=== PATIENT | female | born 1970 | race Caucasian/White ===

== ENCOUNTER 2017-02-05 06:50 | Emergency (ER) | payer OTHER ==
[2017-02-05 07:37] VITALS: O2SAT 99
[2017-02-05 08:03] LABS: BASOPHILS % (AUTO) 1 % (0-3); EOSINOPHILS % (AUTO) 4 % (0-9); HEMATOCRIT 38 % (35-47); MEAN CORPUSCULAR HGB CONC 36.3 gm/dl (32.0-36.0); MEAN CORPUSCULAR VOLUME 96 fL (81-99); MONOCYTES % (AUTO) 6.6 % (0-12); NEUTROPHILS % (AUTO) 67.5 % (37-80)
[2017-02-05 08:05] VITALS: BP 113/76; PULSE 72; RESP 13; TEMP 98.3
[2017-02-05 08:18] LABS: NORMAL RBCS NORMAL RBCS
== END 2017-02-05 08:32 | disposition home or self-care (01) | DRG 204 ==
LOC: ED 06:50
DX: R07.81 Pleurodynia (principal)
CPT/HCPCS: 36415; 71020; 85025; 93005; 99284

== ENCOUNTER 2017-11-20 23:28 | Emergency (ER) | payer BC, OTHER ==
[2017-11-20 23:29] VITALS: O2SAT 99
[2017-11-21 00:39] VITALS: BP 114/77; PULSE 100; RESP 16; TEMP 99
[2017-11-21] MEDS ORDERED: NAPROXEN 500 MG TAB PO ONE (00:47)
[2017-11-21] MEDS ORDERED: NAPROXEN 500 MG TAB ONE (00:53)
== END 2017-11-21 01:00 | disposition home or self-care (01) ==
LOC: ED 23:28
DX: N83.292 Other ovarian cyst, left side (principal); R10.2 Pelvic and perineal pain
CPT/HCPCS: 99282; A9270-GY